=== PATIENT | male | born 1950 | race Caucasian/White ===

== ENCOUNTER 2017-12-26 15:07 | Emergency (ER) | payer MEDICARE ==
[~2017-12-26] VITALS: Ht 182.9 cm; Wt 106.9 kg
[~2017-12-26 15:07] MED LIST: ASPI81 PO; BACT800T5 PO; CELE200C PO; CLIN1CAP5 PO; HYZA100T6 PO; MIRA33502 PO; MUPI2%T TOP
[2017-12-26 15:21] VITALS: BP 153/85; PULSE 60; RESP 16; TEMP 98.5; O2SAT 99
[2017-12-26] MEDS ORDERED: LIDOCAINE HCL 1% 50 ML VIAL INFIL ONE (15:45)
[2017-12-26] MEDS ORDERED: LIDOCAINE HCL 1% PF 30 ML VIAL ONE (15:58)
[2017-12-26] MEDS ORDERED: CEPH-459 PO (16:02)
[2017-12-26] MEDS ORDERED: cholesterol med (16:02)
[2017-12-26] MEDS ORDERED: CELE200C PO (16:02)
[2017-12-26] MEDS ORDERED: ASPI-516 CHEW (16:02)
[2017-12-26] MEDS ORDERED: LOSA100T PO (16:02)
[2017-12-26] MEDS ORDERED: BACT800T5 PO (16:14)
--- NOTE | 2017-12-26 16:14 | PD ---
HPI Chief Complaint: Skin Problem Time Seen by Provider: 15:36 Travel History International Travel<30 days: No Contact w/Intl Traveler<30days: No Traveled to known affect area: No History of Present Illness HPI 67-year-old male that presents to the ED for evaluation of infection to his left ring finger. Patient has had this for about 3 days now. Per patient he was seen by his doctor and started on Keflex on Wednesday. The patient is not getting better. Is concerned that antibiotic is not helping. Denies any injury to it. Has had this before. 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 Denies any urinary or bowel movement issues. No fevers chills or sweats. No other injuries. Pain is 4 out of 10 on the finger. His medical concerned that he is not improving and is getting bigger. He has noted some drainage from the area. He denies any trauma to it. Per patient she's had it before he doesn't know why he keeps getting them. PFSH Past Medical History Hx Anticoagulant Therapy: Yes (asa 81mg) Arthritis: Yes Cancer: Yes (BLADDER CA) Cardiovascular Problems: Yes (htn on meds) High Cholesterol: Yes Diminished Hearing: No Gastrointestinal Disorders: No Genitourinary: Yes (Bladder cancer, removal of bladder and prostate in 2016) Hypertension: Yes Musculoskeletal: Yes Neurologic: No Respiratory: Yes Sleep Apnea: Yes Past Surgical History Genitourinary Surgery: Yes (PROSTECTOMY, BLADDER REMOVAL,ILLIOCONDUIT 2016) Tonsillectomy: Yes Social History Alcohol Use: No Tobacco Use: No Substance Use: No Allergies-Medications (Allergen,Severity, Reaction): Coded Allergies: *MDRO Multi-Drug Resistant Organism (Verified Adverse Reaction, Unknown, ) MRSA (finger-06/05/16) Reported Meds & Prescriptions Reported Meds & Active Scripts Active Reported [cholesterol med] Celebrex (Celecoxib) 200 Mg Cap 200 Mg PO BID Aspirin 81 Mg Chew 81 Mg CHEW DAILY Losartan (Losartan Potassium) 100 Mg Tab 100 Mg PO DAILY Keflex (Cephalexin) 250 Mg Cap 250 Mg PO Q6H Review of Systems Except as stated in HPI: all other systems reviewed are Neg Physical Exam Narrative GENERAL: SKIN: Warm and dry. HEAD: Atraumatic. Normocephalic. EYES: Pupils equal and round. No scleral icterus. No injection or drainage. ENT: No nasal bleeding or discharge. Mucous membranes pink and moist. NECK: Trachea midline. No JVD. CARDIOVASCULAR: Regular rate and rhythm. RESPIRATORY: No accessory muscle use. Clear to auscultation. Breath sounds equal bilaterally. GASTROINTESTINAL: Abdomen soft, non-tender, nondistended. Hepatic and splenic margins not palpable. MUSCULOSKELETAL: Extremities without clubbing, cyanosis, or edema. No obvious deformities. Full range of motion of the upper and lower extremities bilaterally. 2+ pulses bilaterally. Good capillary refill of all fingers. Patient does have swelling and pustule-like lesion to the dorsal aspect of the left fourth digit. No obvious joint and tendon involvement. No foreign body noted. Erythematous and tender to touch. NEUROLOGICAL: Awake and alert. No obvious cranial nerve deficits. Motor grossly within normal limits. Five out of 5 muscle strength in the arms and legs. Normal speech. PSYCHIATRIC: Appropriate mood and affect; insight and judgment normal. Data Data Last Documented VS Vital Signs Date Time Temp Pulse Resp B/P (MAP) Pulse Ox O2 Delivery O2 Flow Rate FiO2 12/26/17 15:21 98.5 60 16 153/85 (107) 99 Orders Orders Wound Culture And Gram Stain (12/26/17 15:37) Wound Care (12/26/17 15:37) Lidocaine 1% Inj (50 Ml) (Xylocaine 1% I (12/26/17 15:45) Lidocaine Pf 1% Inj (Xylocaine-Mpf 1% In (12/26/17 15:58) MDM Medical Decision Making Medical Screen Exam Complete: Yes Emergency Medical Condition: Yes Medical Record Reviewed: Yes Differential Diagnosis Abscesses versus MRSA versus staph infection Narrative Course 67-year-old male to presents to the ED for evaluation of infection to his fourth digit. I was able to review his medical records and I noticed that he grew MRSA that was resistant to cephalosporins. Likely the source of why patient's not improving. Patient does appear to have a small pustule in the area. i do ecommend incision and drainage of this. Patient agrees with this. Please refer to my procedure note. Patient was told to discontinue the Keflex. He will be started on Bactrim. Told to follow with PCP. See ED worsening symptoms. Symptoms should improve in the next couple days. Procedures Procedure Narrative After the risks and benefits were discussed the following procedure was performed: INCISION AND DRAINAGE OF ABSCESS: The area was prepped and was sterilely draped. A subcutaneous wheal of 1 % Xylocaine with a total number 5 mL was used to anesthetize the area. The area was properly anesthetized. A sterile needle was used to make a puncture incision across the area of the abscess. Cultures were obtained. The abscess was drained an irrigated with normal saline. Sterile dressing applied. Diagnosis Primary Impression: Abscess Patient Instructions: General Instructions Additional Instructions: Motrin or Tylenol for pain. Ice or warm compresses as needed. Recheck in 48 hours seen no improvement at all. Discontinue the Keflex. Take Bactrim. See ED worsening symptoms. Med/Other Pt SpecificInfo: Prescription(s) given Disposition: 01 DISCHARGE HOME Condition: Stable Yohan Cox Dec 26, 2017 16:14
[2017-12-27] MEDS ORDERED: CELE200C PO (20:34)
[2017-12-27] MEDS ORDERED: ROSU1TAB6 PO (20:35)
[2017-12-27] MEDS ORDERED: CLIN150C14 PO (23:20)
== END 2017-12-26 16:25 | disposition home or self-care (01) ==
LOC: PHEFT 15:07
DX: L02.512 Cutaneous abscess of left hand (principal); B95.62 Methicillin resistant Staphylococcus aureus infection as the cause of diseases classified elsewhere; Z16.19 Resistance to other specified beta lactam antibiotics; Z16.11 Resistance to penicillins; M19.90 Unspecified osteoarthritis, unspecified site; I10 Essential (primary) hypertension; E78.00 Pure hypercholesterolemia, unspecified; Z85.51 Personal history of malignant neoplasm of bladder; Z79.82 Long term (current) use of aspirin
CPT/HCPCS: 10060; 86403; 87070; 87186; 87205

== ENCOUNTER 2017-12-27 19:45 | Emergency (ER) | payer MEDICARE ==
[~2017-12-27] VITALS: Ht 182.9 cm; Wt 104.7 kg
[~2017-12-27 19:45] MED LIST changes: +ASPI-516 CHEW; -ASPI81 PO; +CEPH-459 PO; -CLIN1CAP5 PO; -HYZA100T6 PO; +LOSA100T PO; -MIRA33502 PO; -MUPI2%T TOP; +cholesterol med
[2017-12-27 19:52] VITALS: BP 193/88; PULSE 67; RESP 18; TEMP 98.4; O2SAT 97
[2017-12-27] MEDS ORDERED: CELE200C PO (20:34)
[2017-12-27] MEDS ORDERED: ROSU1TAB6 PO (20:35)
[2017-12-27] MEDS ORDERED: CLINDAMYCIN INJ 900 MG in SODIUM CHLORIDE 0.9% INJ 100 ML IV ONE (21:15)
[2017-12-27] MEDS ORDERED: KETOROLAC TROMETHAMINE 30 MG/ML (IVP) VIAL IV PUSH ONE (21:15)
[2017-12-27] MEDS ORDERED: CLINDAMYCIN 900 MG/NS PREMIX 50 ML IV ONE (21:30)
[2017-12-27 22:00] VITALS: BP 138/76; PULSE 54; RESP 14; O2SAT 98
[2017-12-27 22:01] LABS: AUTOMATED NEUTROPHIL # 5.7 TH/MM3 (1.8-7.7); BASOPHIL # 0.1 TH/MM3 (0-0.2); BASOPHIL % 0.9 % (0.0-2.0); EOSINOPHIL # 0.2 TH/MM3 (0-0.4); EOSINOPHIL % 2.3 % (0.0-4.0); HEMATOCRIT 42.1 % (39.0-51.0); HEMOGLOBIN 14.7 GM/DL (13.0-17.0); LYMPH % 19.7 % (9.0-44.0); LYMPHOCYTE # 1.6 TH/MM3 (1.0-4.8); MEAN CELL VOLUME 91.3 FL (80.0-100.0); MEAN CORPUSCULAR HEMOGLOBIN 31.8 PG (27.0-34.0); MEAN CORPUSCULAR HGB CONC 34.9 % (32.0-36.0); MONO % 7.4 % (0.0-8.0); MONOCYTE # 0.6 TH/MM3 (0-0.9); NEUT % 69.7 % (16.0-70.0); PLATELET COUNT 245 TH/MM3 (150-450); RED BLOOD COUNT 4.62 MIL/MM3 (4.50-5.90); RED CELL DISTRIBUTION WIDTH 12.7 % (11.6-17.2); WHITE BLOOD COUNT 8.2 TH/MM3 (4.0-11.0)
--- NOTE | 2017-12-27 22:07 | PD ---
HPI Chief Complaint: Skin Problem Time Seen by Provider: 21:14 Travel History International Travel<30 days: No Contact w/Intl Traveler<30days: No Traveled to known affect area: No History of Present Illness HPI 67-year-old male presents to the emergency department by private transportation for evaluation of left ring finger infection. Patient states on noted a small pustule to the area and saw his primary care provider was started on an antibiotic ointment and Keflex due to persistent symptoms and no improvement was seen in the emergency department 12/26/17 was identified patient had a pustular area with erythematous base requiring unroofing which was performed in the emergency department and purulent drainage was reportedly expressed. The site was cultured and specimen sent for culture and sensitivity. Patient was changed from Keflex antibiotic to Bactrim antibiotic. Patient reports that he feels the infection has not improved after 3 doses of oral Bactrim and thinks that there may be more swelling of the left ring finger. Patient denies any ascending erythema. Patient had no fever or chills. No reported axillary tenderness or lymphadenopathy. Patient is not diabetic and takes no immunosuppressive medications. Patient rates his discomfort 3/10 in intensity. Patient reports that the site continues to have some drainage. Patient states he has not tried to express any drainage and has not squeezed or pressed on the digit. Patient denies any increased pain with extension or flexion of the digit just states because of the soft tissue swelling he has decreased flexion range of motion. PFSH Past Medical History Narrative Medical Arthritis hypertension dyslipidemia bladder cancer recurrent cellulitis/staph/ MRSA infections; prostatectomy bladder removal ileoconduit Hx Anticoagulant Therapy: Yes (BABY ASA) Arthritis: Yes Cancer: Yes (BLADDER CA) Cardiovascular Problems: Yes (HTN) High Cholesterol: Yes Diminished Hearing: No Gastrointestinal Disorders: No Genitourinary: Yes (Bladder cancer, removal of bladder and prostate in 2016) Hypertension: Yes Musculoskeletal: Yes Neurologic: No Respiratory: Yes Integumentary: Yes (MRSA) Sleep Apnea: Yes Influenza Vaccination: No Past Surgical History Genitourinary Surgery: Yes (PROSTECTOMY, BLADDER REMOVAL,ILLIOCONDUIT 2016) Tonsillectomy: Yes Social History Alcohol Use: Yes (VERY RARE) Tobacco Use: No (QUIT 1984) Substance Use: No Allergies-Medications (Allergen,Severity, Reaction): Coded Allergies: *MDRO Multi-Drug Resistant Organism (Verified Adverse Reaction, Unknown, ) MRSA (finger-06/05/16) Reported Meds & Prescriptions Reported Meds & Active Scripts Active Clindamycin (Clindamycin HCl) 150 Mg Cap 300 Mg PO Q6H 7 Days Bactrim DS (Sulfamethoxazole-Trimethoprim) 800-160 Mg Tab 1 Tab PO BID 14 Days Reported Rosuvastatin (Rosuvastatin Calcium) 10 Mg Tab 10 Mg PO HS Celebrex (Celecoxib) 200 Mg Cap 200 Mg PO DAILY Aspirin 81 Mg Chew 81 Mg CHEW DAILY Losartan (Losartan Potassium) 100 Mg Tab 100 Mg PO DAILY Review of Systems Except as stated in HPI: all other systems reviewed are Neg General / Constitutional: No: Fever, Chills HENT: No: Congestion Cardiovascular: No: Chest Pain or Discomfort Respiratory: No: Shortness of Breath Gastrointestinal: No: Vomiting Musculoskeletal: Positive: Limited ROM (left ring finger), No: Myalgias, Arthralgias Skin: Positive Rash (left ring finger) Neurologic: No: Weakness Hematologic/Lymphatic: No: Easy Bruising Physical Exam Narrative GENERAL: Well-developed well-nourished male no acute distress or respiratory distress SKIN: Warm and dry. CARDIOVASCULAR: Regular rate and rhythm without murmurs, gallops, or rubs. RESPIRATORY: Breath sounds equal bilaterally. No accessory muscle use. GASTROINTESTINAL: Abdomen soft, non-tender, nondistended. MUSCULOSKELETAL: No cyanosis, or edema. Attention: left ring finger proximal digit dorsal radial aspect area of erythema induration 4 cm x 3 cm with a partially interrupted pustule/vesicle with scant serosanguineous drainage nonfluctuant no crepitus tenderness to palpation no ascending erythema no left axillary lymphadenopathy, mild edema to the distal hand near the fourth MCP. Patient has intact extension of the digit without pain and decreased flexion secondary to soft tissue swelling denies increased pain on active or passive flexion extension of the digit. Negative [place]. Capillary refill is brisk and less than 2 seconds per digit. Neurovascularly intact. Data Data Last Documented VS Vital Signs Date Time Temp Pulse Resp B/P (MAP) Pulse Ox O2 Delivery O2 Flow Rate FiO2 12/27/17 23:45 12/27/17 23:10 52 14 98 Room Air 12/27/17 19:52 98.4 Orders Orders Basic Metabolic Panel (Bmp) (12/27/17 21:14) Complete Blood Count With Diff (12/27/17 21:14) Iv Access Insert/Monitor (12/27/17 21:14) Ketorolac Inj (Toradol Inj) (12/27/17 21:15) Clindamycin 900 Mg/Ns Premix (Cleocin 90 (12/27/17 21:30) Wound Care (12/27/17 22:07) Potassium Chloride (Kcl) (12/27/17 23:00) Ed Discharge Order (12/27/17 23:38) Labs Laboratory Tests Test 12/27/17 21:40 White Blood Count 8.2 TH/MM3 Red Blood Count 4.62 MIL/MM3 Hemoglobin 14.7 GM/DL Hematocrit 42.1 % Mean Corpuscular Volume 91.3 FL Mean Corpuscular Hemoglobin 31.8 PG Mean Corpuscular Hemoglobin Concent 34.9 % Red Cell Distribution Width 12.7 % Platelet Count 245 TH/MM3 Mean Platelet Volume 8.0 FL Neutrophils (%) (Auto) 69.7 % Lymphocytes (%) (Auto) 19.7 % Monocytes (%) (Auto) 7.4 % Eosinophils (%) (Auto) 2.3 % Basophils (%) (Auto) 0.9 % Neutrophils # (Auto) 5.7 TH/MM3 Lymphocytes # (Auto) 1.6 TH/MM3 Monocytes # (Auto) 0.6 TH/MM3 Eosinophils # (Auto) 0.2 TH/MM3 Basophils # (Auto) 0.1 TH/MM3 CBC Comment DIFF FINAL Differential Comment Blood Urea Nitrogen 16 MG/DL Creatinine 0.93 MG/DL Random Glucose 108 MG/DL Calcium Level 9.2 MG/DL Sodium Level 138 MEQ/L Potassium Level 3.2 MEQ/L Chloride Level 100 MEQ/L Carbon Dioxide Level 30.3 MEQ/L Anion Gap 8 MEQ/L Estimat Glomerular Filtration Rate 81 ML/MIN MDM Medical Decision Making Medical Screen Exam Complete: Yes Emergency Medical Condition: Yes Medical Record Reviewed: Yes Interpretation(s) CBC & BMP Diagram 12/27/17 21:40 Calcium Level 9.2 Vital Signs Date Time Temp Pulse Resp B/P (MAP) Pulse Ox O2 Delivery O2 Flow Rate FiO2 12/27/17 22:30 14 12/27/17 22:00 54 14 138/76 (96) 98 Room Air 12/27/17 20:40 14 12/27/17 19:52 98.4 67 18 193/88 (735) 39 Differential Diagnosis Recheck abscess, cellulitis, exam not consistent with tenosynovitis or necrotizing fasciitis or compartment syndrome Narrative Course Patient with preliminary culture consistent with staph species; patient administered IV clindamycin; site cleansed Patient will be continued on Bactrim antibiotic as well as addition of clindamycin with recommended recheck at 24-48 hours with PCP. At this time patient is stable for outpatient oral antibiotic management. Patient status post partial unroofing of pustule and expression of purulent drainage 12/26/17. No fluctuance on exam and no crepitus on exam, patient with partially interrupted pustule/ulceration of digit however after soaking digit no debris or drainage at surface of digit therefore using Iris scissors vesicle roof was removed/unroofed. Dressing applied. Patient is recommended for a 1 day recheck in the emergency department and is aware that should he not show evidence of improvement will need admission for IV antibiotics. Diagnosis Primary Impression: Cellulitis of ring finger Qualified Codes: L03.012 - Cellulitis of left finger Additional Impression: Hypokalemia Referrals: Hand Surgeon call for appointment Primary Care Physician 2 days Patient Instructions: General Instructions Additional Instructions: Keep wound site clean and dry; cleanse daily with antibacterial soap such as Dial Complete course of antibiotic as prescribed Recommend wound check at 1 day or before for increasing redness, swelling, fever , or any concerns Follow-up with primary care provider call office to schedule follow-up appointment Increase potassium containing foods and beverages Med/Other Pt SpecificInfo: Prescription(s) given Scripts Clindamycin (Clindamycin) 150 Mg Cap 300 MG PO Q6H for Infection for 7 Days, #56 CAP 0 Refills Prov: Leanne Mora MD 12/27/17 Disposition: 01 DISCHARGE HOME Condition: Stable Leanne Mora MD Dec 27, 2017 22:07
[2017-12-27 22:16] LABS: BICARBONATE 30.3 MEQ/L (21.0-32.0); CALCIUM 9.2 MG/DL (8.5-10.1)
[2017-12-27 22:20] LABS: CREATININE 0.93 MG/DL (0.60-1.30)
[2017-12-27] MEDS ORDERED: POTASSIUM CHLORIDE 20 MEQ CONTROLLED RELEASE TAB PO ONE (23:00)
[2017-12-27 23:10] VITALS: BP 134/68; PULSE 52; RESP 14; O2SAT 98
[2017-12-27] MEDS ORDERED: CLIN150C14 PO (23:20)
== END 2017-12-27 23:55 | disposition home or self-care (01) ==
LOC: PHED 19:45
DX: L03.012 Cellulitis of left finger (principal); E87.6 Hypokalemia; M19.90 Unspecified osteoarthritis, unspecified site; I10 Essential (primary) hypertension; E78.00 Pure hypercholesterolemia, unspecified; G47.30 Sleep apnea, unspecified; E78.5 Hyperlipidemia, unspecified; Z79.82 Long term (current) use of aspirin
CPT/HCPCS: 80048; 85025; 96365; 96375; 99284; J1885; 10140